=== PATIENT | male | born 1960 | race Caucasian/White ===

== ENCOUNTER 2016-11-23 08:07 | Inpatient (IN) | payer BC, MEDICAID, OTHER ==
[~2016-11-23] VITALS: Ht 180.3 cm; Wt 83.9 kg
[2016-11-23] MEDS ORDERED: Morphine Sulfate 2mg/ml Inj IVP ONE (08:15)
[2016-11-23] MEDS ORDERED: Nitroglycerin 2% oint pkt TOPIC ONE (08:15)
--- NOTE | 2016-11-23 08:26 | Emergency Room Report ---
History of Present Illness General Source: Patient, EMS Present Illness HPI Patient presents with left-sided chest pain and pressure that began at 7:30 this morning. He also had dyspnea at that time. It felt similar to the time just before when he had his angioplasty done on November 01. Paramedics were summoned and an EKG did not show any acute injury. He got aspirin and nitroglycerin. The pain was a 5/10 initially and was reduced to a 3 after treatment. Patient denies any fevers, productive cough. He is exposed to cigarette smoke last night. Apparently during initial episode he had a syncopal episode while blood was being drawn at [facility]. It was only after being admitted to the hospital that they elected to do elective angioplasty. 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 Angioplasty was performed. He's been taking his medication and had a medication change last week while the arts administrator. He was having shortness of breath and he told this to the arts administrator and there was no answer for him as to what the cause was. The patient has a history of hypertension and cigar smoking. No fever, cough, sore throat. No NVD, dysuria, He feels some anxiety. Allergies: Coded Allergies: No Known Allergies (Unverified , 11/23/16) Patient History Past Medical History: see triage record Past Surgical History: PTCA Social History: Reports: smoking - cigars before Social History Narrative from [facility] Reviewed Nursing Documentation: PMH: Agreed, PSxH: Agreed Review of Systems All Other Systems: negative except mentioned in HPI Physical Exam Vital Signs Date Time Temp Pulse Resp B/P Pulse Ox O2 Delivery O2 Flow Rate FiO2 11/23/16 08:23 97.0 80 15 133/79 98 Room Air 11/23/16 19:30 21 Sp02 EP Interpretation: reviewed, normal General Appearance: well appearing, no apparent distress, GCS 15 Head: normocephalic Eyes: bilateral eye PERRL, bilateral eye normal inspection ENT: moist mucus membranes Neck: supple Respiratory: chest non-tender, lungs clear, normal breath sounds Cardiovascular #1: regular rate, rhythm, no edema, no rub Cardiovascular #2: 2+ radial (R) Gastrointestinal: normal inspection, normal bowel sounds, non tender, no mass, non-distended Musculoskeletal: back normal, gait/station normal, normal range of motion, no calf tenderness Neurologic: alert, oriented x3 Psychiatric: mood/affect normal Skin: normal inspection, warm/dry Medical Decision Making Diagnostic Impression: Primary Impression: Chest pain Qualified Codes: R07.9 - Chest pain, unspecified Additional Impression: Post PTCA ER Course The patient presents with chest pain couple weeks after angioplasty. Differential includes acute myocardial infarction, acute coronary syndrome, gastroenteritis, pericarditis symptoms. Emergent evaluation labs come EKG chest x-ray were taken. The patient will be treated with nitro paste. He received an aspirin in the field. The fact nitrates helped is disconcerting. EKG is normal. The patient is improved with treatment here. Initial troponin is negative. He was contacted by his physicians who requested that he come down to [facility] as we do not have a catheterization lab here. Patient without pain at this time. [facility] uncertain when bed would open. Currently, the patient does not need to go to the quality lab technician. Admit here telemetry Dr. Kim. Repeat troponins. Second troponin negative. Laboratory Tests Test 11/23/16 08:26 11/23/16 08:54 White Blood Count 5.6 K/UL (4.8-10.8) Red Blood Count 4.79 M/UL (4.70-6.10) Hemoglobin 13.2 G/DL (14.2-18.0) L Hematocrit 40.1 % (42.0-52.0) L Mean Corpuscular Volume 84 FL (80-99) Mean Corpuscular Hemoglobin 27.6 PG (27.0-31.0) Mean Corpuscular Hemoglobin Concent 32.9 G/DL (32.0-36.0) Red Cell Distribution Width 12.7 % (11.6-14.8) Platelet Count 302 K/UL (150-450) Mean Platelet Volume 6.6 FL (6.5-10.1) Neutrophils (%) (Auto) 37.8 % (45.0-75.0) L Lymphocytes (%) (Auto) 49.5 % (20.0-45.0) H Monocytes (%) (Auto) 7.2 % (1.0-10.0) Eosinophils (%) (Auto) 3.5 % (0.0-3.0) H Basophils (%) (Auto) 2.1 % (0.0-2.0) H Prothrombin Time 10.2 SEC (9.30-11.50) Prothrombin Time INR 1.0 (0.9-1.1) Sodium Level 140 mEQ/L (135-145) Potassium Level 3.9 mEQ/L (3.4-4.9) Chloride Level 99 mEQ/L (98-107) Carbon Dioxide Level 28 mEQ/L (20-30) Anion Gap 13 (5-15) Blood Urea Nitrogen 12 mg/dL (7-23) Creatinine 0.9 mg/dL (0.7-1.2) Estimate Glomerular Filtration Rate > 60 mL/min (>60) Glucose Level 155 mg/dL (74-106) H Calcium Level 9.2 mg/dL (8.6-10.2) Total Bilirubin 0.3 mg/dL (0.0-1.2) Aspartate Amino Transferase (AST) 15 U/L (5-40) Alanine Aminotransferase (ALT) 12 U/L (3-41) Alkaline Phosphatase 56 U/L (40-129) Total Creatine Kinase 102 U/L (38-174) Troponin I < 0.30 ng/mL (<=0.30) Pro-B-Type Natriuretic Peptide 69 pg/mL (0-125) Total Protein 7.2 g/dL (6.6-8.7) Albumin 4.2 g/dL (3.5-5.2) Globulin 3.0 g/dL Albumin/Globulin Ratio 1.4 (1.0-2.7) Urine Color Pale yellow Urine Appearance Clear Urine pH 6.5 (4.5-8.0) Urine Specific [place] 1.010 (1.005-1.035) Urine Protein Negative (NEGATIVE) Urine Glucose (UA) Negative (NEGATIVE) Urine Ketones Negative (NEGATIVE) Urine Occult Blood 1+ (NEGATIVE) H Urine Nitrite Negative (NEGATIVE) Urine Bilirubin Negative (NEGATIVE) Urine Urobilinogen Normal MG/DL (0.0-1.0) Urine Leukocyte Esterase Negative (NEGATIVE) Urine RBC 0-2 /HPF (0 - 0) H Urine WBC 0-2 /HPF (0 - 0) Urine Squamous Epithelial Cells Few /LPF (NONE/OCC) Urine Bacteria Few /HPF (NONE) EKG Diagnostic Results Rate: normal Rhythm: NSR ST Segments: no acute changes Rhythm Strip Diag. Results EP Interpretation: yes Rhythm: NSR, no PVC's, no ectopy Chest X-Ray Diagnostic Results EP Interpretation: Yes Findings: no consolidation, no effusion, no pneumothorax, no acute cardiopulmonary disease Number of Views: 1 Last Vital Signs Date Time Temp Pulse Resp B/P Pulse Ox O2 Delivery O2 Flow Rate FiO2 11/23/16 11:56 15 127/78 98 Room Air 11/23/16 10:53 80 11/23/16 10:51 97.0 Status: improved Disposition: ADMITTED INPATIENT Condition: Serious Nabil Simons M.D. Nov 23, 2016 08:26
[2016-11-23] MEDS ORDERED: ASPIR 8181 MG ORAL (08:31)
[2016-11-23] MEDS ORDERED: ATORVASTATIN CA20 MG ORAL (08:31)
[2016-11-23 08:33] VITALS: BP 133/79
[2016-11-23 08:42] LABS: BASOPHILS % (AUTO) 2.1 % (0.0-2.0); EOSINOPHILS % (AUTO) 3.5 % (0.0-3.0); LYMPHOCYTES % (AUTO) 49.5 % (20.0-45.0); MEAN CORPUSCULAR HEMOGLOBIN 27.6 PG (27.0-31.0); MEAN CORPUSCULAR HGB CONC 32.9 G/DL (32.0-36.0); MEAN CORPUSCULAR VOLUME 84 FL (80-99); MEAN PLATELET VOLUME 6.6 FL (6.5-10.1); MONOCYTES % (AUTO) 7.2 % (1.0-10.0); NEUTROPHILS % (AUTO) 37.8 % (45.0-75.0); PLATELET COUNT 302 K/UL (150-450); RED BLOOD COUNT 4.79 M/UL (4.70-6.10); RED CELL DISTRIBUTION WIDTH 12.7 % (11.6-14.8); WHITE BLOOD COUNT 5.6 K/UL (4.8-10.8)
[2016-11-23 08:46] LABS: PROTHROMBIN TIME 10.2 SEC (9.30-11.50)
[2016-11-23 08:51] LABS: ALANINE AMINOTRANSFERASE 12 U/L (3-41); ALBUMIN/GLOBULIN RATIO 1.4 (1.0-2.7); ANION GAP 13 (5-15); ASPARTATE AMINO TRANSFERASE 15 U/L (5-40); CALCIUM 9.2 mg/dL (8.6-10.2); CARBON DIOXIDE 28 mEQ/L (20-30); CHLORIDE 99 mEQ/L (98-107); CREATININE 0.9 mg/dL (0.7-1.2); GLOMERULAR FILTRATION RATE > 60 mL/min (>60); HEMOLYSIS 5; POTASSIUM 3.9 mEQ/L (3.4-4.9); SODIUM 140 mEQ/L (135-145); TOTAL PROTEIN 7.2 g/dL (6.6-8.7)
[2016-11-23 08:52] LABS: TROPONIN I < 0.30 ng/mL (<=0.30)
[2016-11-23] MEDS ORDERED: UNOBMED (08:58)
[2016-11-23 09:30] LABS: APPEARANCE,URINE CLEAR; KETONES,URINE NEGATIVE (NEGATIVE); LEUKOCYTE ESTERASE ,URINE NEGATIVE (NEGATIVE); NITRITE,URINE NEGATIVE (NEGATIVE); PH,URINE 6.5 (4.5-8.0); PROTEIN,URINE NEGATIVE (NEGATIVE); UROBILINOGEN,URINE NORMAL MG/DL (0.0-1.0)
[2016-11-23 09:48] LABS: BACTERIA,URINE FEW /HPF; RBC,URINE 0-2 /HPF (0 - 0); SQUAMOUS EPITHELIAL CELL,UR FEW /LPF (NONE/OCC); WBC,URINE 0-2 /HPF (0 - 0)
[2016-11-23] MEDS ORDERED: LORazepam Inj 2mg/ml 1ml IV ONE (10:00)
[2016-11-23 11:56] VITALS: BP 127/78
--- NOTE | 2016-11-23 12:12 | Diagnostic Imaging Report ---
Indication: Chest Pain Comparison: None A single view chest radiograph was obtained. Findings: Cardiomediastinal appearance is within normal limits for age. Pulmonary vascularity is appropriate. The diaphragmatic contour is smooth and costophrenic angles are sharp. No pleural effusions are identified. The bones are unremarkable. Impression: No acute findings
[2016-11-23 13:45] VITALS: BP 131/77
[2016-11-23 14:22] LABS: TROPONIN I < 0.30 ng/mL (<=0.30)
--- NOTE | 2016-11-23 15:05 | History and Physical ---
History of Present Illness General Date patient seen: Nov 23, 2015 Reason for Hospitalization: Chest Pain and dyspnea Present Illness HPI 56-year-old male, who presented to ED complaining of left-sided chest pain accompanied with dyspnea. Patient is being admitted to hospital to receive aspirin and nitroglycerin. 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 He has history of hypertension and smoking. The patient was admitted to telemetry. Cardiac requested with Dr. Perkins. Allergies: Coded Allergies: No Known Allergies (Unverified , 11/23/16) Medication History Scheduled Aspirin* (Aspir 81*), 81 MG ORAL DAILY, (Reported) Atorvastatin Calcium* (Atorvastatin Calcium*), Unknown Dose ORAL BEDTIME, ( Reported) Miscellaneous Medications Unable to Obtain Medications (Unable To Obtain Meds), (Reported) Patient History Healthcare decision maker Resuscitation status Advanced Directive on File Review of Systems Constitutional: Reports: see HPI Respiratory: Reports: cough, shortness of breath, wheezing Cardiovascular: Reports: chest pain Physical Exam General Appearance: no apparent distress Lines, tubes and drains: peripheral HEENT: normocephalic, atraumatic, PERRL Neck: non-tender, normal alignment Respiratory/Chest: chest wall non-tender, crackles/rales Breasts: no masses Cardiovascular/Chest: normal peripheral pulses, normal rate, regular rhythm Abdomen: normal bowel sounds, non tender, soft, no organomegaly, no mass Genitourinary/Rectal: normal genital exam, normal rectal exam Extremities: normal range of motion, non-tender, normal inspection Skin Exam: normal pigmentation, warm/dry Last 24 Hour Vital Signs Date Time Temp Pulse Resp B/P Pulse Ox O2 Delivery O2 Flow Rate FiO2 11/23/16 14:57 59 18 131/77 100 Room Air 11/23/16 13:45 97.0 59 131/77 100 Room Air 11/23/16 11:56 15 127/78 98 Room Air 11/23/16 10:53 80 15 Room Air 11/23/16 10:51 97.0 11/23/16 08:33 97.0 15 133/79 98 Room Air 11/23/16 08:31 133/79 11/23/16 08:23 97.0 80 15 133/79 98 Room Air Laboratory Tests Test 11/23/16 08:26 11/23/16 08:54 11/23/16 13:30 White Blood Count 5.6 K/UL (4.8-10.8) Red Blood Count 4.79 M/UL (4.70-6.10) Hemoglobin 13.2 G/DL (14.2-18.0) L Hematocrit 40.1 % (42.0-52.0) L Mean Corpuscular Volume 84 FL (80-99) Mean Corpuscular Hemoglobin 27.6 PG (27.0-31.0) Mean Corpuscular Hemoglobin Concent 32.9 G/DL (32.0-36.0) Red Cell Distribution Width 12.7 % (11.6-14.8) Platelet Count 302 K/UL (150-450) Mean Platelet Volume 6.6 FL (6.5-10.1) Neutrophils (%) (Auto) 37.8 % (45.0-75.0) L Lymphocytes (%) (Auto) 49.5 % (20.0-45.0) H Monocytes (%) (Auto) 7.2 % (1.0-10.0) Eosinophils (%) (Auto) 3.5 % (0.0-3.0) H Basophils (%) (Auto) 2.1 % (0.0-2.0) H Prothrombin Time 10.2 SEC (9.30-11.50) Prothromb Time International Ratio 1.0 (0.9-1.1) Sodium Level 140 mEQ/L (135-145) Potassium Level 3.9 mEQ/L (3.4-4.9) Chloride Level 99 mEQ/L (98-107) Carbon Dioxide Level 28 mEQ/L (20-30) Anion Gap 13 (5-15) Blood Urea Nitrogen 12 mg/dL (7-23) Creatinine 0.9 mg/dL (0.7-1.2) Estimat Glomerular Filtration Rate > 60 mL/min (>60) Glucose Level 155 mg/dL (74-106) H Calcium Level 9.2 mg/dL (8.6-10.2) Total Bilirubin 0.3 mg/dL (0.0-1.2) Aspartate Amino Transf (AST/SGOT) 15 U/L (5-40) Alanine Aminotransferase (ALT/SGPT) 12 U/L (3-41) Alkaline Phosphatase 56 U/L (40-129) Total Creatine Kinase 102 U/L (38-174) Troponin I < 0.30 ng/mL (<=0.30) < 0.30 ng/mL (<=0.30) Pro-B-Type Natriuretic Peptide 69 pg/mL (0-125) Total Protein 7.2 g/dL (6.6-8.7) Albumin 4.2 g/dL (3.5-5.2) Globulin 3.0 g/dL Albumin/Globulin Ratio 1.4 (1.0-2.7) Urine Color Pale yellow Urine Appearance Clear Urine pH 6.5 (4.5-8.0) Urine Specific [place] 1.010 (1.005-1.035) Urine Protein Negative (NEGATIVE) Urine Glucose (UA) Negative (NEGATIVE) Urine Ketones Negative (NEGATIVE) Urine Occult Blood 1+ (NEGATIVE) H Urine Nitrite Negative (NEGATIVE) Urine Bilirubin Negative (NEGATIVE) Urine Urobilinogen Normal MG/DL (0.0-1.0) Urine Leukocyte Esterase Negative (NEGATIVE) Urine RBC 0-2 /HPF (0 - 0) H Urine WBC 0-2 /HPF (0 - 0) Urine Squamous Epithelial Cells Few /LPF (NONE/OCC) Urine Bacteria Few /HPF (NONE) Height (Feet): 5 Height (Inches): 11.00 Weight (Pounds): 185 Medications Current Medications Medications (Trade) Dose Ordered Sig/Luis Daniel Route PRN Reason Start Time Stop Time Status Last Admin Dose Admin Aspirin (Ecotrin) 81 mg DAILY ORAL 11/24/16 09:00 12/24/16 08:59 UNV Atorvastatin Calcium (Lipitor) 20 mg BEDTIME ORAL 11/23/16 21:00 12/23/16 20:59 UNV Assessment/Plan Status: stable, progressing Assessment/Plan Assessment Chest pain Dyspnea History of recent angioplasty Hx of 90 % coronary occlusion Plan Cardiology consultation requested O2 therapy Nitroglycerine as needed for CP ASA DVT and stress ulcer prophylaxis Pain management morphine as needed for CP Cardiac enzymes GIULIANA JACOB Nov 23, 2016 15:05
[2016-11-23] MEDS ORDERED: Miralax 17gm pkt ORAL PRN (15:15)
[2016-11-23] MEDS ORDERED: Diltiazem 25mg/5ml IV PRN (15:15)
[2016-11-23] MEDS ORDERED: Nitroglycerin Subl 0.4mg tab (Bottle Of 25) SL PRN (15:15)
[2016-11-23] MEDS ORDERED: Enalaprilat 2.5mg/2ml Inj IV PRN (15:15)
[2016-11-23] MEDS ORDERED: DuoNeb 0.5-3(2.5)mg/3ml neb HHN PRN (15:15)
[2016-11-23] MEDS ORDERED: Morphine Sulfate 2mg/ml Inj IVP PRN (15:15)
[2016-11-23] MEDS ORDERED: Ketorolac 30mg Inj IV PRN (15:15)
[2016-11-23 16:00] VITALS: BP 119/72
[2016-11-23 19:59] LABS: TROPONIN I < 0.30 ng/mL (<=0.30)
[2016-11-23 20:00] VITALS: BP 121/73
--- NOTE | 2016-11-23 20:25 | Cardiology Progress Note ---
Assessment/Plan Assessment/Plan [id number] chest pain atypical and different than mi pain cad s/p stent ekg 1st neg will need to be repated pain is very differnet than mi pain all torp neg despite 2 hour of pain trop and ekg will be repeated in am echo for wall motion if ekg adn trop remian neg will nto prusuit at thsi time tejinder pn asa andplavix Objective Last 24 Hour Vital Signs Date Time Temp Pulse Resp B/P Pulse Ox O2 Delivery O2 Flow Rate FiO2 11/23/16 16:00 60 11/23/16 16:00 97.9 59 18 119/72 99 Room Air 11/23/16 14:57 59 18 131/77 100 Room Air 11/23/16 13:45 97.0 59 131/77 100 Room Air 11/23/16 11:56 15 127/78 98 Room Air 11/23/16 10:53 80 15 Room Air 11/23/16 10:51 97.0 11/23/16 08:33 97.0 15 133/79 98 Room Air 11/23/16 08:31 133/79 11/23/16 08:23 97.0 80 15 133/79 98 Room Air Laboratory Tests Test 11/23/16 08:26 11/23/16 08:54 11/23/16 13:30 11/23/16 19:17 White Blood Count 5.6 K/UL (4.8-10.8) Red Blood Count 4.79 M/UL (4.70-6.10) Hemoglobin 13.2 G/DL (14.2-18.0) L Hematocrit 40.1 % (42.0-52.0) L Mean Corpuscular Volume 84 FL (80-99) Mean Corpuscular Hemoglobin 27.6 PG (27.0-31.0) Mean Corpuscular Hemoglobin Concent 32.9 G/DL (32.0-36.0) Red Cell Distribution Width 12.7 % (11.6-14.8) Platelet Count 302 K/UL (150-450) Mean Platelet Volume 6.6 FL (6.5-10.1) Neutrophils (%) (Auto) 37.8 % (45.0-75.0) L Lymphocytes (%) (Auto) 49.5 % (20.0-45.0) H Monocytes (%) (Auto) 7.2 % (1.0-10.0) Eosinophils (%) (Auto) 3.5 % (0.0-3.0) H Basophils (%) (Auto) 2.1 % (0.0-2.0) H Prothrombin Time 10.2 SEC (9.30-11.50) Prothromb Time International Ratio 1.0 (0.9-1.1) Sodium Level 140 mEQ/L (135-145) Potassium Level 3.9 mEQ/L (3.4-4.9) Chloride Level 99 mEQ/L (98-107) Carbon Dioxide Level 28 mEQ/L (20-30) Anion Gap 13 (5-15) Blood Urea Nitrogen 12 mg/dL (7-23) Creatinine 0.9 mg/dL (0.7-1.2) Estimat Glomerular Filtration Rate > 60 mL/min (>60) Glucose Level 155 mg/dL (74-106) H Calcium Level 9.2 mg/dL (8.6-10.2) Total Bilirubin 0.3 mg/dL (0.0-1.2) Aspartate Amino Transf (AST/SGOT) 15 U/L (5-40) Alanine Aminotransferase (ALT/SGPT) 12 U/L (3-41) Alkaline Phosphatase 56 U/L (40-129) Total Creatine Kinase 102 U/L (38-174) Troponin I < 0.30 ng/mL (<=0.30) < 0.30 ng/mL (<=0.30) < 0.30 ng/mL (<=0.30) Pro-B-Type Natriuretic Peptide 69 pg/mL (0-125) Total Protein 7.2 g/dL (6.6-8.7) Albumin 4.2 g/dL (3.5-5.2) Globulin 3.0 g/dL Albumin/Globulin Ratio 1.4 (1.0-2.7) Urine Color Pale yellow Urine Appearance Clear Urine pH 6.5 (4.5-8.0) Urine Specific [place] 1.010 (1.005-1.035) Urine Protein Negative (NEGATIVE) Urine Glucose (UA) Negative (NEGATIVE) Urine Ketones Negative (NEGATIVE) Urine Occult Blood 1+ (NEGATIVE) H Urine Nitrite Negative (NEGATIVE) Urine Bilirubin Negative (NEGATIVE) Urine Urobilinogen Normal MG/DL (0.0-1.0) Urine Leukocyte Esterase Negative (NEGATIVE) Urine RBC 0-2 /HPF (0 - 0) H Urine WBC 0-2 /HPF (0 - 0) Urine Squamous Epithelial Cells Few /LPF (NONE/OCC) Urine Bacteria Few /HPF (NONE) HEMAL KRISHNA Nov 23, 2016 20:25
[2016-11-23] MEDS ORDERED: Atorvastatin 20mg tab ORAL SCH (21:00)
[2016-11-23] MEDS: Heparin 5000 units/ml inj SUBQ SCH (21:36)
--- NOTE | 2016-11-23 21:58 | Consultation ---
DATE OF CONSULTATION: 11/23/2016 CARDIOLOGY CONSULTATION REFERRING PHYSICIAN: Sergio Kim M.D. REASON FOR REFERRAL: Chest pain. HISTORY OF PRESENT ILLNESS: This is a 56-year-old gentleman who has a history of coronary disease. He apparently has been having some chest pain. He was referred to a sales force developer as previously by his primary care physician through his HMO that never happened. Eventually 3 weeks ago, he ended up having some discomfort. He went to the emergency room at [facility] where he was diagnosed apparently with myocardial infarction and immediately taken for cath laboratory and he ended up having a stent and he was discharged on Brilinta and aspirin. Subsequently, on follow up, he was complaining some shortness of breath and other symptoms. His doctor felt that the Brilinta has been causing some of the symptoms and he switched him over to Plavix and he has been taking the Plavix since then. Every now and then and especially today he ended up having some numbness and tingling in his hands and feet. He also has experienced some pain in the chest in the center of the chest something that he did not feel before the pain in the character and the duration and severity of the pain will much different than what he had with his myocardial infarction. He did not experience any jaw pain nor did he experience any pain in the left side of his chest that he had felt. No sensation of expanding pain that he was feeling before his myocardial infarction either. This episode did not escalate and level he subsequently was brought to the emergency room and after approximately two hours the discomfort eventually resolved and he has no longer had that he is not sure whether he was feeling anxious. He does have some shortness of breath on exertion or up on some stairs but not experiences the chest discomfort. There is no PND. He uses two pillows. No heart pounding or palpitations. No dizziness or lightheadedness. PAST MEDICAL HISTORY: Negative for diabetes. He does have a history of high blood pressure. He does have a history of heart attack and coronary disease stenting. No history cancer, stroke, hepatitis, tuberculosis, asthma, emphysema, ulcers, kidney problems, liver problems, thyroid problems, anemia, and arthritis. ALLERGIES: He is not allergic to any medications. SOCIAL HISTORY: He smokes only cigars. No cigarettes. No alcohol. No drugs. 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 REVIEW OF SYSTEMS: Gastrointestinal: Negative. Cardiovascular: Negative. Pulmonary: Negative. Constitutional: Negative. Neurologic: Negative. PHYSICAL EXAMINATION: GENERAL: Shows to be a middle-aged gentleman, in no apparent distress. NECK: Supple. No jugular venous distention. No abdominojugular reflux noted. LUNGS: Clear to auscultation and percussion. CARDIAC: S1 is normal. S2 is normal. Regular rate and rhythm. No heaves, thrills, gallops, or rubs noted. ABDOMEN: Soft and nontender. Positive bowel sounds. EXTREMITIES: There is no clubbing, cyanosis, or edema. NEUROLOGIC: He is awake, alert, responsive, in no apparent distress. LABORATORY VALUES: White count is 5.6, hemoglobin 13.2, and platelet count of 302,000. His sodium is 140, potassium 3.9, chloride 99, bicarbonate 28, BUN 12, creatinine 0.9, and glucose of 155. Calcium is 9.2. Troponin on three separate occasions are all negative and his proBNP was only 69. His coags, INR 1.0 and his urinalysis is fairly unremarkable. Chest x-ray was unremarkable. EKG shows normal sinus rhythm, nonspecific T-wave changes only in lead 3 only. There is no ST or T wave abnormalities and thus far his EKG. ASSESSMENT AND PLAN: 1. Chest pain. 2. Coronary disease status post myocardial infarction and stenting approximately three weeks ago. Dr. Kim, this patient was seen in cardiac consultation. The patient's cardiac enzymes were all negative despite having 2 hours of chest pain. His EKG first was quite unremarkable. His pain apparently was different what he experienced three weeks ago and he never escalated to a level of more than 3 as it had there previously no relieving exacerbating factors noted with this episode of pain. He did not have experienced any jaw pain or left-sided chest pain or expansion of the pain that he was experiencing previously and his EKG is fairly unremarkable. Therefore, I am not sure I would pursue with further imaging unless his chest pain becomes a recurrent problem. I would recommend that he follow up with his prior sales force developer for further treatment. We will recommend repeating the EKG and an echocardiogram to see how if any significant changes on the EKG upcoming does occur. Rao Perkins M.D. DR: VIJAY JOB#: [id number] CC:
[2016-11-24] VITALS: BP 105/54
[2016-11-24 08:10] LABS: BASOPHILS % (AUTO) 1.6 % (0.0-2.0); EOSINOPHILS % (AUTO) 2.5 % (0.0-3.0); MEAN CORPUSCULAR HEMOGLOBIN 26.3 PG (27.0-31.0); MEAN CORPUSCULAR HGB CONC 31.3 G/DL (32.0-36.0); MEAN CORPUSCULAR VOLUME 84 FL (80-99); MEAN PLATELET VOLUME 6.2 FL (6.5-10.1); MONOCYTES % (AUTO) 6.1 % (1.0-10.0); NEUTROPHILS % (AUTO) 48.7 % (45.0-75.0); PLATELET COUNT 277 K/UL (150-450); RED BLOOD COUNT 4.81 M/UL (4.70-6.10); RED CELL DISTRIBUTION WIDTH 12.7 % (11.6-14.8); WHITE BLOOD COUNT 7.4 K/UL (4.8-10.8)
[2016-11-24 08:25] LABS: CHOLESTEROL 134 mg/dL (< 200); CHOLESTEROL/HDL RATIO 5.8 (3.3-4.4); CRP QUANT < 0.3 mg/dL (< 0.5); HEMOLYSIS 5; LDL CHOLESTEROL (CALC.) 68 mg/dL (60-99)
[2016-11-24 08:28] LABS: THYROID STIMULATING HORMONE 0.545 uIU/mL (0.300-4.500)
[2016-11-24 08:32] VITALS: BP 103/63
[2016-11-24 08:33] LABS: TROPONIN I < 0.30 ng/mL (<=0.30)
[2016-11-24 08:55] LABS: PROTHROMBIN TIME 10.6 SEC (9.30-11.50)
[2016-11-24] MEDS ORDERED: Aspirin EC 81mg tab ORAL SCH (09:00)
[2016-11-24] MEDS ORDERED: Aspirin Baby 81mg ORAL SCH (09:00)
[2016-11-24] MEDS: Heparin 5000 units/ml inj SUBQ SCH (10:57)
[2016-11-24 11:57] VITALS: BP 119/69
--- NOTE | 2016-11-24 15:09 | Cardiology Report ---
APPROVED REPORT EKG Measurement Heart [id number] Normal sinus rhythm Normal ECG
[2016-11-24 16:00] VITALS: BP 128/82
--- NOTE | 2016-11-24 16:40 | Pulmonology Progress Note ---
Assessment/Plan Assessment/Plan Assessment/Plan Assessment Chest pain Dyspnea History of recent angioplasty Hx of 90 % coronary occlusion Plan Cardiology consultation requested O2 therapy Nitroglycerine as needed for CP ASA DVT and stress ulcer prophylaxis Pain management morphine as needed for CP Cardiac enzymes Subjective ROS Limited/Unobtainable: No Constitutional: Reports: chills, fatigue Cardiovascular: Reports: chest pain, palpitations Allergies: Coded Allergies: No Known Allergies (Unverified , 11/23/16) Objective Last 24 Hour Vital Signs Date Time Temp Pulse Resp B/P Pulse Ox O2 Delivery O2 Flow Rate FiO2 11/24/16 16:00 98.1 70 18 128/82 100 Room Air 11/24/16 11:57 97.2 78 18 119/69 98 Room Air 11/24/16 09:05 65 20 Room Air 21 11/24/16 08:32 97.5 86 18 103/63 98 Room Air 11/24/16 08:15 65 11/24/16 04:00 65 11/24/16 00:00 63 11/24/16 00:00 97.9 63 18 105/54 97 Room Air 11/23/16 20:00 98.1 64 18 121/73 97 Room Air 11/23/16 19:30 60 20 Room Air 21 Intake and Output 11/23/16 11/24/16 19:00 07:00 Intake Total 390 ml Balance 390 ml Intake Oral 390 ml # Voids 1 General Appearance: no acute distress HEENT: normocephalic, atraumatic, PERRL Respiratory/Chest: chest wall non-tender, decreased breath sounds, accessory muscle use Cardiovascular: normal peripheral pulses, normal rate, regular rhythm, no JVD Abdomen: normal bowel sounds, soft, non tender, no organomegaly Genitourinary: normal external genitalia Extremities: no cyanosis Skin: no rash, no lesions Neurologic/Psychiatric: mark up designer II-XII grossly normal, no motor/sensory deficits Laboratory Tests 11/23/16 19:17: Troponin I < 0.30 11/24/16 07:50: Troponin I < 0.30, White Blood Count 7.4, Red Blood Count 4.81, Hemoglobin 12.7L , Hematocrit 40.4L, Mean Corpuscular Volume 84, Mean Corpuscular Hemoglobin 26.3L, Mean Corpuscular Hemoglobin Concent 31.3L, Red Cell Distribution Width 12.7, Platelet Count 277, Mean Platelet Volume 6.2L, Neutrophils (%) (Auto) 48.7 , Lymphocytes (%) (Auto) 41.0, Monocytes (%) (Auto) 6.1, Eosinophils (%) (Auto) 2.5, Basophils (%) (Auto) 1.6, Prothrombin Time 10.6, Prothromb Time International Ratio 1.0, Activated Partial Thromboplast Time 29, C-Reactive Protein, Quantitative < 0.3, Triglycerides Level 215H, Cholesterol Level 134, LDL Cholesterol 68, HDL Cholesterol 23, Cholesterol/HDL Ratio 5.8H, Thyroid Stimulating Hormone (TSH) 0.545 Current Medications Medications (Trade) Dose Ordered Sig/Luis Daniel Route PRN Reason Start Time Stop Time Status Last Admin Dose Admin Acetaminophen (Tylenol) 650 mg Q4H PRN ORAL FEVER 11/23/16 15:15 12/23/16 15:14 Albuterol/ Ipratropium (DuoNeb 0.5-3(2.5)mg/3ml) 3 ml EVERY 4 HOURS PRN HHN Shortness of Breath 11/23/16 15:15 11/28/16 15:14 Aspirin (Ecotrin) 81 mg DAILY ORAL 11/24/16 09:00 12/24/16 08:59 Atorvastatin Calcium (Lipitor) 20 mg BEDTIME ORAL 11/23/16 21:00 12/23/16 20:59 11/23/16 21:35 Diltiazem HCl (Cardizem) 10 mg EVERY HOUR PRN IV heart rate more than 120, 11/23/16 15:15 12/23/16 15:14 Enalaprilat (Vasotec) 2.5 mg EVERY 6 HOURS PRN IV sbp more than 160 11/23/16 15:15 12/23/16 15:14 Heparin Sodium (Porcine) (Heparin 5000 units/ml) 5,000 units EVERY 12 HOURS SUBQ 11/23/16 21:00 12/23/16 20:59 11/24/16 10:57 Ketorolac Tromethamine (Toradol 30mg) 30 mg Q6HR PRN IV moderate pain ( 4-6) 11/23/16 15:15 11/28/16 15:14 Morphine Sulfate (Morphine Sulfate) 2 mg EVERY 4 HOURS PRN IVP severe Pain (Pain Scale 7-10) 11/23/16 15:15 11/30/16 15:14 Nitroglycerin (Ntg) 0.4 mg Q5M PRN SL Prn Chest Pain 11/23/16 15:15 12/23/16 15:14 Ondansetron HCl (Zofran) 4 mg Q6H PRN IVP Nausea & Vomiting 11/23/16 15:15 12/23/16 15:14 Pantoprazole (Protonix) 40 mg DAILY ORAL 11/24/16 09:00 12/24/16 08:59 11/24/16 11:03 Polyethylene Glycol (Miralax) 17 gm DAILYPRN PRN ORAL Constipation 11/23/16 15:15 12/23/16 15:14 Temazepam (Restoril) 15 mg HSPRN PRN ORAL Insomnia 11/23/16 15:15 11/30/16 15:14 GIULIANA JACOB Nov 24, 2016 16:40
--- NOTE | 2016-11-26 00:57 | Discharge Summary 2 SIG ---
DATE OF ADMISSION: 11/23/2016 DATE OF DISCHARGE: 11/24/2016 MECHANICAL SHOVEL OPERATOR: Rao Perkins M.D. BRIEF HOSPITAL COURSE: The patient is a 56-year-old male, who presented to ED complaining of left-sided chest pain accompanied with dyspnea. Symptoms were similar to the time when the patient had an angioplasty done. He received aspirin and nitroglycerin with partial relief of symptoms. 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 He has history of hypertension and smoking. The patient was admitted to telemetry. Cardiac consult was done with Dr. Perkins. After angioplasty, he was initially on Brilinta then stopped and has been taking Plavix since then. Serial troponins were negative. EKG was fairly unremarkable. He was continued on aspirin and Lipitor and was eventually discharged home. FINAL DIAGNOSIS: Coronary artery disease status post recent myocardial infarction and stenting. Sergio Kim M.D. I have been assigned to dictate discharge summary on this account and I was not involved in the patient's management. Jil Alex N.P. DR: PARTH JOB#: [id number] CC: BRUCE
== END 2016-11-24 17:30 | disposition home or self-care (01) | DRG 198 ==
LOC: EDBD 08:07 → EMR 08:53 → 2E 09:14 → EDBEDREQ 11:04
DX: I25.10 Atherosclerotic heart disease of native coronary artery without angina pectoris (principal); I10 Essential (primary) hypertension; Z95.5 Presence of coronary angioplasty implant and graft; Z87.891 Personal history of nicotine dependence; I25.2 Old myocardial infarction; Z79.02 Long term (current) use of antithrombotics/antiplatelets; R07.89 Other chest pain
CPT/HCPCS: 36415; 71010; 80053; 80061; 81003; 82550; 82962; 83880; 84443; 84484; 85025; 85610; 85730; 86140; 93005; 94664; J2405